=== PATIENT | male | born 1955 | race Caucasian/White ===

== ENCOUNTER 2019-07-24 13:24 | Emergency (ER) | payer BC ==
[2019-07-24] MEDS ORDERED: Sodium Chloride 0.9% 1000 ML 1,000 ML IV STA (13:58)
[2019-07-24] MEDS ORDERED: Sodium Chloride 0.9% 1000 ML 1,000 ML ONE (14:03)
[2019-07-24 14:16] LABS: Absolute Neutrophil Ct (ANC) 9.99 (1.4-6.9); BASOPHIL % 0.5 % (0.0-0.4); Basophil (Absolute #) 0.06 (0-0.4); Eosinophil % 0.2 % (0.00-5.0); Eosinophil (Absolute #) 0.03 (0-0.5); Hematocrit 46.5 % (42-50); Hemoglobin 15.9 gm/dl (12.5-18.0); Lymphocyte (Absolute #) 1.72 (1.0-4.6); Lymphocytes % 13.7 % (24.0-44.0); Mean Cell Volume 91.2 fl (78-100); Mean Corpuscular Hemoglobin 31.2 pg (26-32); Mean Corpuscular Hgb Concent. 34.2 g/dl (32-36); Mean Platelet Volume 12.7 fl (7.5-11.0); Monocyte (Absolute #) 0.74 (0.0-1.3); Monocytes % 5.9 % (0.0-12.0); Neutrophil % 79.7 % (36.0-66.0); Platelet Count 198 K/mm3 (150-450); Red Cell Distribution Width 13.2 % (11.5-14.0); White Blood Count 12.5 K/mm3 (4.0-10.5)
[2019-07-24 14:27] LABS: ALBUMIN 4.3 g/dL (3.5-5.0); ALKALINE PHOSPHATASE 97 U/L (38-126); ANION GAP 16.4 MEQ/L (5-15); BLOOD UREA NITROGEN 19 mg/dL (9-20); CHLORIDE 105 mmol/L (98-107); CK-Creatinine Phosphokinase 55 U/L (55-170); Calcium 9.8 mg/dL (8.4-10.2); Carbon Dioxide 22 mmol/L (22-30); Creatinine 1 0.82 mg/dL (0.66-1.25); Glucose 200 mg/dL (74-106); LIPASE 67 U/L (23-300); Potassium 4.1 mmol/L (3.5-5.1); SGOT/AST 27 U/L (17-59); SGPT/ALT 26 U/L (0-50); SODIUM 140 mmol/L (137-145); Total Protein 7.3 g/dL (6.3-8.2)
[2019-07-24 14:30] VITALS: BP 117/67; PULSE 74; O2SAT 97
[2019-07-24 15:12] LABS: Appearance SLIGHTLY CLOUDY (CLEAR); Bilirubin NEGATIVE (NEGATIVE); Blood SMALL Ery/ul (0-5); Glucose NEGATIVE (NEGATIVE); Ketones NEGATIVE (NEGATIVE); Leukocyte Esterase NEGATIVE (NEGATIVE); Mucus SLIGHT /HPF (NEGATIVE); Nitrite NEGATIVE (NEGATIVE); Protein,Urine Dip 30 (Negative); Specific Gravity 1.018 (1.005-1.025); Urobilinogen 2 mg/dL (0-1)
--- NOTE | 2019-07-24 15:34 | ERPHSYRPT ---
- History of Present Illness Time Seen by Provider: 07/24/19 13:39 Source: patient Exam Limitations: no limitations Patient Subjective Stated Complaint: Pt states "I was working on planting the collins this morning and the tractor broke down and I got down on the ground to work on it and I got really really hot. My eyes went a little wonky and I thought I should just come here." Triage Nursing Assessment: Pt presented alert and oriented X 3, skin pwd Pt ambulates with an upright steady gait, able to speak in clear full sentences. Pt in no apaprent respiratory distress. Physician History: 64 years old male kamara was planting his collins when tractor broke, got out and fixed the tire and heart son. Patient reports he was out for a little while , drenching and later on got really really hot with sweating all over. He started to feel mild dizzy, lightheaded and feeling as if he was going to pass out. He got into the tractor [employer] [place] and after 15 minutes his symptoms improved. Patient currently does not have any symptoms. Although he feels dehydrated. He also drank some water and now feeling close to his normal. Denies any chest pain palpitations or shortness of breath. Although he was feeling mildly nauseated earlier but no abdominal pain or vomiting reported. No fever or chills. No body aches at present. Timing/Duration: today, resolved prior to arrival, improved Severity: moderate Modifying Factors: Improves With: cold therapy, rest Associated Symptoms: nausea, No vomiting, No abdominal pain, No shortness of breath, No heartburn, No diaphoresis, No cough, No chills, No chest pain, No fever, No headaches, No loss of appetite, No malaise, No rash Allergies/Adverse Reactions: No Known Drug Allergies Allergy (Unverified 07/24/19 13:39) Home Medications: Aspirin EC 81 mg [Ecotrin 81 mg] 81 mg PO DAILY 07/24/19 [History] Metoprolol Succinate 50 mg [Toprol Xl 50 MG] 50 mg PO DAILY 07/24/19 [ History] Pravastatin Sodium 40 mg PO DAILY 07/24/19 [History] Prednisone 10 mg [Deltasone 10 mg] 10 mg PO DAILY 07/24/19 [History] hydroCHLOROthiazide [Hydrochlorothiazide] 12.5 mg PO DAILY 07/24/19 [History] lisinopriL [Lisinopril] 40 mg PO DAILY 07/24/19 [History] Hx Tetanus, Diphtheria Vaccination/Date Given: No Hx Influenza Vaccination/Date Given: No Hx Pneumococcal Vaccination/Date Given: No Immunizations Up to Date: Yes Travel Risk - International Travel Have you traveled outside of the country in past 3 weeks: No Have you or anyone close to you been diagnosed with or: No Do your reside in a community with a known COVID-19 case?: Yes If Yes where:: [place] - Coronavirus Screening Has patient experienced Coronavirus symptoms: No - Review of Systems Constitutional: Fatigue Eyes: No Symptoms Ears, Nose, & Throat: No Symptoms Respiratory: No Symptoms Cardiac: No Symptoms Abdominal/Gastrointestinal: Nausea Genitourinary Symptoms: No Symptoms Musculoskeletal: Myalgias Skin: No Symptoms Neurological: No Symptoms Psychological: No Symptoms Endocrine: Excessive Sweating Hematologic/Lymphatic: No Symptoms Immunological/Allergic: No Symptoms - Past Medical History Pertinent Past Medical History: Yes Neurological History: No Pertinent History ENT History: No Pertinent History Cardiac History: High Cholesterol, Hypertension Respiratory History: COPD Endocrine Medical History: No Pertinent History Musculoskeletal History: No Pertinent History GI Medical History: No Pertinent History History: No Pertinent History Psycho-Social History: No Pertinent History Male Reproductive Disorders: No Pertinent History - Past Surgical History Past Surgical History: No - Social History Smoking Status: Never smoker Exposure to second hand smoke: No Drug Use: none Patient Lives Alone: No - Nursing Vital Signs Nursing Vital Signs: Initial Vital Signs Temperature 97.5 F 07/24/19 13:28 Pulse Rate 79 07/24/19 13:28 Respiratory Rate 18 07/24/19 13:28 Blood Pressure 119/74 07/24/19 13:28 O2 Sat by Pulse Oximetry 96 07/24/19 13:28 Pain Scale Pain Intensity 0 - Physical Exam General Appearance: no apparent distress, alert, anxiety Eye Exam: PERRL/EOMI, eyes nml inspection Ears, Nose, Throat Exam: normal ENT inspection, TMs normal, pharynx normal Neck Exam: normal inspection, non-tender, supple, full range of motion Respiratory Exam: normal breath sounds, lungs clear Cardiovascular Exam: regular rate/rhythm, normal heart sounds Gastrointestinal/Abdomen Exam: soft, normal bowel sounds, No tenderness Back Exam: normal inspection, normal range of motion, No CVA tenderness Extremity Exam: normal inspection, normal range of motion Neurologic Exam: alert, oriented x 3, cooperative, inspector hairspring II-XII nml as tested, normal mood/affect, nml cerebellar function, sensation nml Skin Exam: normal color SpO2 Interpretation: normal SpO2: 97 O2 Delivery: Room Air - Course Nursing assessment & vital signs reviewed: Yes Ordered Tests: Active Orders 24 hr Category Date Time Status IV Insertion STAT Care 07/24/19 13:58 Active CBC W DIFF Stat Lab 07/24/19 14:20 Completed CK-Creatinine Phosphokinase Stat Lab 07/24/19 14:20 Completed CMP Stat Lab 07/24/19 14:20 Completed CULTURE,URINE Stat Lab 07/24/19 15:00 Received LIPASE Stat Lab 07/24/19 14:20 Completed UA W/RFX UR CULTURE Stat Lab 07/24/19 15:00 Completed Medication Summary Discontinued Medications Generic Name Dose Route Start Last Admin Trade Name Freq PRN Reason Stop Dose Admin Sodium Chloride 1,000 mls @ 999 mls/hr 07/24/19 13:58 07/24/19 15:13 Sodium Chloride 0.9% 1000 Ml IV 07/24/19 14:58 Infused .Q1H1M STA Infusion Sodium Chloride Confirm 07/24/19 14:03 Sodium Chloride 0.9% 1000 Ml Administered 07/24/19 14:04 Dose 1,000 mls @ ud .ROUTE .STK-MED ONE Lab/Rad Data: Laboratory Result Diagrams 07/24/19 14:20 07/24/19 14:20 Laboratory Results 07/24/19 07/24/19 07/24/19 Range/Units 15:00 14:20 14:20 WBC 12.5 H (4.0-10.5) K/mm3 RBC 5.10 (4.1-5.6) M/mm3 Hgb 15.9 (12.5-18.0) gm/dl Hct 46.5 (42-50) % MCV 91.2 (78-100) fl MCH 31.2 (26-32) pg MCHC 34.2 (32-36) g/dl RDW 13.2 (11.5-14.0) % Plt Count 198 (150-450) K/mm3 MPV 12.7 H (7.5-11.0) fl Gran % 79.7 H (36.0-66.0) % Eos # (Auto) 0.03 (0-0.5) Absolute Lymphs (auto) 1.72 (1.0-4.6) Absolute Monos (auto) 0.74 (0.0-1.3) Lymphocytes % 13.7 L (24.0-44.0) % Monocytes % 5.9 (0.0-12.0) % Eosinophils % 0.2 (0.00-5.0) % Basophils % 0.5 (0.0-0.4) % Absolute Granulocytes 9.99 H (1.4-6.9) Basophils # 0.06 (0-0.4) Sodium 140 (137-145) mmol/L Potassium 4.1 (3.5-5.1) mmol/L Chloride 105 (98-107) mmol/L Carbon Dioxide 22 (22-30) mmol/L Anion Gap 16.4 H (5-15) MEQ/L BUN 19 (9-20) mg/dL Creatinine 0.82 (0.66-1.25) mg/dL Estimated GFR > 60.0 ML/MIN Glucose 200 H (74-106) mg/dL Calcium 9.8 (8.4-10.2) mg/dL Total Bilirubin 0.80 (0.2-1.3) mg/dL AST 27 (17-59) U/L ALT 26 (0-50) U/L Alkaline Phosphatase 97 (38-126) U/L Creatine Kinase 55 (55-170) U/L Serum Total Protein 7.3 (6.3-8.2) g/dL Albumin 4.3 (3.5-5.0) g/dL Lipase 67 (23-300) U/L Urine Color YELLOW (YELLOW) Urine Appearance SLIGHTLY CLOUDY (CLEAR) Urine pH 6.0 (5-6) Ur Specific [place] 1.018 (1.005-1.025) Urine Protein 30 (Negative) Urine Ketones NEGATIVE (NEGATIVE) Urine Blood SMALL (0-5) Thierry/ul Urine Nitrite NEGATIVE (NEGATIVE) Urine Bilirubin NEGATIVE (NEGATIVE) Urine Urobilinogen 2 (0-1) mg/dL Ur Leukocyte Esterase NEGATIVE (NEGATIVE) Urine WBC (Auto) 6-10 (0-5) /HPF Urine RBC (Auto) 11-15 (0-2) /HPF U Epithel Cells (Auto) NONE (FEW) /HPF Urine Bacteria (Auto) NONE (NEGATIVE) /HPF Urine Mucus (Auto) SLIGHT (NEGATIVE) /HPF Urine Culture Reflexed YES (NO) Urine Glucose NEGATIVE (NEGATIVE) mg/dL - Progress Progress: improved, re-examined Progress Note: 07/24/19 15:33 64 years old is evaluated for excessive exposure to heat. Is given a bolus of IV fluid. Work-up showed white count of 12 and mildly elevated gap. CK level is normal. Patient is feeling back to his normal. Nonfocal neuro exam. No chest pain or shortness of breath. It seems more of a heat exhaustion. Recommended staying in a cool environment, increase fluid intake and outpatient follow-up. At this point I do not think patient needs any imaging or work-up and is stable for discharge with outpatient follow-up. Counseled pt/family regarding: lab results, diagnosis, need for follow-up - Departure Departure Disposition: Home Clinical Impression: Heat exhaustion Qualifiers: Encounter type: initial encounter Qualified Code(s): T67.5XXA - Heat exhaustion , unspecified, initial encounter Condition: Stable Critical Care Time: No Referrals: JOI [employer] [employer]ENT[employer] [Primary Care Provider] - (12 days for reevaluation) Instructions: Heat Exhaustion and Heat Stroke (DC) Additional Instructions: Drink plenty of fluids. Stay in a cool environment. Take Tylenol as needed for body aches. Follow-up with primary care physician for reevaluation. Return to ER for any worsening.
== END 2019-07-24 15:52 | disposition home or self-care (01) ==
LOC: ED 13:24
DX: T67.5XXA Heat exhaustion, unspecified, initial encounter (principal); E78.00 Pure hypercholesterolemia, unspecified; I10 Essential (primary) hypertension; J44.9 Chronic obstructive pulmonary disease, unspecified
CPT/HCPCS: 36000; 36415; 80053; 81001; 82550; 83690; 85025; 87086; 96360; 99284